=== PATIENT | female | born 1980 | race Two or more races ===

== ENCOUNTER 2021-09-15 13:38 | Emergency (ER) | payer SELFPAY ==
[~2021-09-15] VITALS: Ht 157.5 cm; Wt 61.6 kg
[2021-09-15 14:15] VITALS: BP 148/67
--- NOTE | 2021-09-15 14:42 | PHYS DOC ---
General Adult EDM: Chief Complaint: ABSCESS HPI: HPI: Patient is a 41 year old female who presents the ED today complaining of right middle finger infection that began 3 days ago. Patient states she attempted to drain the finger yesterday with no success. Patient states she is right-handed. Review of Systems: Review of Systems: Constitutional: Denies fever or chills. [] Musculoskeletal: Denies back pain or joint pain. [] Integument: Reports right middle finger infection Neurologic: Denies headache, focal weakness or sensory changes. [] Psychiatric: Denies depression or anxiety. [] Heart Score: C/O Chest Pain: N/A Risk Factors: Risk Factors: DM, Current or recent (<one month) smoker, HTN, HLP, family history of CAD, obesity. Risk Scores: Score 0 - 3: 2.5% MACE over next 6 weeks - Discharge Home Score 4 - 6: 20.3% MACE over next 6 weeks - Admit for Clinical Observation Score 7 - 10: 72.7% MACE over next 6 weeks - Early Invasive Strategies Current Medications: Current Medications Medications (Trade) Dose Ordered Sig/Devika Start Time Stop Time Status Last Admin Dose Admin Lidocaine/ Epinephrine (LIDOCAINE 1%-EPI 1:100,000 Multi-Dose) 20 ml 1X ONCE 09/15/21 14:45 09/15/21 14:46 UNV Physical Exam: PE: Constitutional: Well developed, well nourished, no acute distress, non-toxic appearance. [] Skin: Right middle finger distal and radial aspect and around the nailbed with mild soft tissue swelling consistent of a paronychia. There is erythema over the region. There is a tiny puncture wound over the region consistent with an attempted drainage. Full range of motion to the finger. +2 right radial pulse. Cap refill less than 2 seconds of right ring middle finger. Back: No tenderness, no CVA tenderness. [] Extremities: No tenderness, no cyanosis, no clubbing, ROM intact, no edema. [] Neurologic: Alert and oriented X 3, normal motor function, normal sensory function, no focal deficits noted. [] Psychologic: Affect normal, judgement normal, mood normal. [] EKG: EKG: [] Radiology/Procedures: Radiology/Procedures: Indication: Paronychia right middle finger Procedure: The patient was positioned appropriately. 1% of lidocaine was used to do a successful digital block to the right middle finger, an incision was then made over the apex of the lesion with an 11 blade and small amount of bloody yellow material was expressed. The drainage cavity was irrigated and covered with sterile gauze. The patients tetanus status updated as needed. The patient tolerated the procedure well. Complications: none.[] Course & Med Decision Making: Course & Med Decision Making Pertinent Labs and Imaging studies reviewed. (See chart for details) This a 41-year-old female patient presenting to the ED today with paronychia of the right middle finger that was drained in the emergency room by me as noted in the procedures. Patient still has cellulitis around the nailbed. Discharged on Bactrim tetanus updated. Return precautions provided. F/u with Ortho and PCP in one week Sydnie Disclaimer: Sydnie Disclaimer: This electronic medical record was generated, in whole or in part, using a voice recognition dictation system. Departure Departure Impression: Primary Impression: Paronychia of finger of right hand Disposition: HOME / SELF CARE / HOMELESS Condition: STABLE Referrals: NO PCP (PCP) SHARON OAKLEY II, MD follow up in 1-2 weeks Patient Instructions: Paronychia, [id number] Additional Instructions: You have infection to the right middle finger, please soak your right middle finger in warm water with Epson salt twice a day. Take the prescribed antibiotics until completed. Take the pain medicine as needed. Follow-up with your doctor or the provided doctor in 1 week Scripts Sulfamethoxazole/Trimethoprim (BACTRIM 400-80 MG TABLET) 1 Each Tablet 1 TAB PO BID for 10 Days, #20 TAB 0 Refills Prov: GRETCHENRILEYEllaDIANN Franci SOLISN 09/15/21 Naproxen (NAPROXEN) 500 Mg Tablet 1 TAB PO BID for pain, #14 TAB 0 Refills Prov: DIANN RAMOS ASSISTANT TECHNICIAN 09/15/21 Hydrocodone Bit/Acetaminophen (HYDROCODONE-APAP 5-325 ) 1 Tab Tablet 1 TAB PO PRN Q6HRS PRN for PAIN, #14 TAB 0 Refills Prov: DIANN RAMOS Franci ASSISTANT TECHNICIAN 09/15/21 DIANN RAMOS Franci ASSISTANT TECHNICIAN September 15, 2021 14:42
[2021-09-15] MEDS ORDERED: LIDOCAINE 1%/EPI 1:100,000 20 ML VIAL. INJ ONE (14:45)
[2021-09-15] MEDS ORDERED: DIPHTH,PERTUSS(ACELL),TET TOX 0.5 ML DISP.SYRIN. VAX IM ONE (15:15)
[2021-09-15] MEDS ORDERED: NAPR-514 PO (15:26)
[2021-09-15] MEDS ORDERED: HYDR-2761 PO (15:26)
[2021-09-15] MEDS ORDERED: SULF1TAB23 PO (15:48)
== END 2021-09-15 16:00 | disposition home or self-care (01) ==
LOC: ER 13:38
DX: L03.011 Cellulitis of right finger (principal)
CPT/HCPCS: 10060; 90471; 90715; 99283; J3490